=== PATIENT | female | born 1980 | race African-American/Black ===

== ENCOUNTER 2020-05-21 08:41 | Inpatient (IN) | payer SELFPAY ==
[~2020-05-21] VITALS: Ht 162.6 cm; Wt 59.0 kg
[2020-05-21 10:00] VITALS: BP 122/80
[2020-05-21] MEDS ORDERED: DEXT 5%/LR + PITOCIN 20UNITS/L 1,000 ML IV SCH (10:17)
[2020-05-21] MEDS ORDERED: METHYLERGONOVINE MALEATE 0.2 MG/ML IM PRN (10:30)
[2020-05-21] MEDS ORDERED: RHO(D) IMMUNE GLOBULIN 300 MCG/SYR IM PRN (10:30)
[2020-05-21] MEDS ORDERED: IBUPROFEN 400MG TABLET PO PRN (10:30)
[2020-05-21 12:33] LABS: CLARITY URINE CLOUDY (CLEAR); COLOR URINE ORANGE (YELLOW); KETONES URINE NEGATIVE (NEGATIVE); LEUKOCYTE ESTERASE URINE 2+ (NEGATIVE); NITRITE URINE NEGATIVE (NEGATIVE); OCCULT BLOOD URINE 3+ (NEGATIVE); PROTEIN URINE 1+ (NEGATIVE); SPECIFIC GRAVITY URINE 1.019 (1.005-1.030)
[2020-05-21 12:51] LABS: *AMPHETAMINES SCREEN URINE NEGATIVE (NEGATIVE); *BARBITURATES SCREEN URINE NEGATIVE (NEGATIVE); *BENZODIAZEPINES SCREEN URINE NEGATIVE (NEGATIVE); METHADONE URINE SCREEN NEGATIVE (NEGATIVE)
[2020-05-21 12:52] LABS: CANNABINOID URINE SCREEN NEGATIVE (NEGATIVE); OPIATES URINE SCREEN NEGATIVE (NEGATIVE); PHENCYCLIDINE URINE SCREEN NEGATIVE (NEGATIVE)
[2020-05-21 12:54] LABS: *COCAINE SCREEN URINE PRESUMTIVE POSITIVE (NEGATIVE)
[2020-05-21] MEDS: IBUPROFEN 800MG TABLET PO PRN ×2 (13:17→19:19)
[2020-05-21 14:00] VITALS: BP 140/92
[2020-05-21 20:00] VITALS: BP 141/87
[2020-05-22 04:00] VITALS: BP 110/65
[2020-05-22] MEDS: IBUPROFEN 800MG TABLET PO PRN (06:52)
[2020-05-22 08:00] VITALS: BP 136/84
[2020-05-22] MEDS ORDERED: PRENATAL VIT/FE FUMARATE/FA TABLET PO SCH (09:00)
== END 2020-05-22 10:00 | disposition home or self-care (01) | DRG 561 ==
LOC: 8EST NSY 08:41 → OBSVTOIN 08:41 → 8 EST A/PP 09:32
PROVIDERS: ADMIT Obstetrics & Gynecology; ATTEND Obstetrics & Gynecology
DX: O99.53 Diseases of the respiratory system complicating the puerperium (principal); J45.909 Unspecified asthma, uncomplicated; Z39.0 Encounter for care and examination of mother immediately after delivery
CPT/HCPCS: 80305; 81003; 99281